=== PATIENT | female | born 1960 | race Caucasian/White ===

== ENCOUNTER 2017-02-10 17:44 | Emergency (ER) | payer BC ==
[2017-02-10] MEDS ORDERED: ONDANSETRON 4 MG/2 ML VIAL IVP STA (18:33)
[2017-02-10] MEDS ORDERED: SODIUM CHLORIDE 0.9% 1,000 ML IV STA (18:33)
[2017-02-10] MEDS ORDERED: ORPHENADRINE 30 MG/ML 2 ML VIAL IVP STA (18:35)
--- NOTE | 2017-02-10 18:35 | ED ---
Headache HPI - General Chief Complaint: Headache Stated Complaint: Headache, dry throat Time Seen by Provider: 02/10/17 18:22 Source: RN notes reviewed Mode of arrival: ambulatory Limitations: no limitations - History of Present Illness Initial Comments: This is a 56-year-old female presenting to emergency Department with chief complaint of a headache and bodyaches and a dry cough and throat. Patient reports that she has history of kidney disease and states that she needs to drink a lot of water. She reports that yesterday she really should not drink any water and thinks that offer symptoms are not related to this. Patient states that she has also been seen by her primary care doctor on Wednesday and was placed on amoxicillin for upper respiratory infection. Patient reports she has not started it yet but his pulses started today. Patient states that she has had a somewhat productive cough. Couple episodes of vomiting. She reports that her headache is a 10 out of 10. It is been going on for the past 12 hours. She reports that she's had a history of migraines and seems somewhat different. Patient states that she's been very fatigued over the past few weeks and has not had much sleep. She reports that she has also had use her 's inhaler due to her amount of coughing. Patient denies any specific fever or chills, abdominal pain, changes in bowel movements or dysuria. She denies any chest pain or shortness of breath. Patient states that her headache is caused her to have somewhat blurred vision. She reports that this is common for she has had a history of eye surgeries. - Related Data Home Medications Medication Instructions Recorded Confirmed Albuterol Sulfate [Proair Hfa] 2 puff INHALATION RT-Q6H PRN 02/10/17 02/10/17 Cetirizine HCl [Zyrtec] 10 mg PO DAILY 02/10/17 02/10/17 Clobetasol Propionate [Temovate] 1 applic TOPICAL DAILY PRN 02/10/17 02/10/17 Ergocalciferol [Vitamin D2] 50,000 unit PO WE 02/10/17 02/10/17 Estrogens, Conjugated Cream 1 applicator VAGINAL Q72H 02/10/17 02/10/17 [Premarin Cream] Fluticasone Nasal [place] [Flonase 2 sprays EA NOSTRIL DAILY PRN 02/10/17 02/10/17 Nasal [place]] Levothyroxine Sodium [Synthroid] 62.5 mcg PO KAUR 02/10/17 02/10/17 Levothyroxine Sodium [Synthroid] 125 mcg PO MOTUWETHFRSA 02/10/17 02/10/17 Multivit-Min/FA/Lycopen/Lutein 1 tab PO DAILY 02/10/17 02/10/17 [Centrum Silver Tablet] Oxymetazoline 0.05% Nasl [place] 2 spray EA NOSTRIL DAILY PRN 02/10/17 02/10/17 [Afrin 0.05% Nasal [place]] Phentermine HCl [Adipex-P] 37.5 mg PO DAILY 02/10/17 02/10/17 Previous Rx's Medication Instructions Recorded Albuterol Inhaler [Ventolin Hfa 1 - 2 puff INHALATION Q6HR PRN #1 02/10/17 Inhaler] inhaler Ondansetron Odt [Zofran Odt] 4 mg PO Q8HR PRN #12 tab 02/10/17 Allergies Allergy/AdvReac Type Severity Reaction Status Date / Time azithromycin Allergy Anaphylaxis Verified 02/10/17 18:43 Sulfa (Sulfonamide Allergy Anaphylaxis Verified 02/10/17 18:43 Antibiotics) amoxicillin AdvReac Vomiting Verified 02/10/17 18:43 cephalexin AdvReac Vomiting Verified 02/10/17 18:43 ciprofloxacin [From Cipro] AdvReac Vomiting Verified 02/10/17 18:43 Review of Systems ROS Statement: Those systems with pertinent positive or pertinent negative responses have been documented in the HPI. ROS Other: All systems not noted in ROS Statement are negative. Past Medical History Past Medical History: Asthma Additional Past Medical History / Comment(s): kidney disease History of Any Multi-Drug Resistant Organisms: None Reported Past Surgical History: Section, Cholecystectomy, Hysterectomy, Orthopedic Surgery Past Psychological History: No Psychological Hx Reported Smoking Status: Former smoker Past Alcohol Use History: Occasional Past Drug Use History: None Reported General Exam - General Exam Comments Initial Comments: This is a 56-year-old female. Patient does not appear to be in any significant distress. She does appear to have somewhat similar to migraine. She is keeping her eyes closed and her head covered. Limitations: no limitations General appearance: alert, in no apparent distress Head exam: Present: atraumatic, normocephalic, normal inspection Eye exam: Present: normal appearance, PERRL, EOMI. Absent: scleral icterus, conjunctival injection, periorbital swelling ENT exam: Present: normal exam, mucous membranes moist Neck exam: Present: normal inspection. Absent: tenderness, meningismus, lymphadenopathy Respiratory exam: Present: normal lung sounds bilaterally. Absent: respiratory distress, wheezes, rales, rhonchi, stridor Cardiovascular Exam: Present: regular rate, normal rhythm, normal heart sounds. Absent: systolic murmur, diastolic murmur, rubs, gallop, clicks GI/Abdominal exam: Present: soft, normal bowel sounds. Absent: distended, tenderness, guarding, rebound, rigid Extremities exam: Present: normal inspection, full ROM, normal capillary refill. Absent: tenderness, pedal edema, joint swelling, calf tenderness Back exam: Present: normal inspection, full ROM Neurological exam: Present: alert, oriented X3, CN II-XII intact Expanded Patient oriented to: Present: person, place, time Speech: Present: fluid speech Cranial nerves: EOM's Intact: Normal, Gag Reflex: Normal, Tongue Deviation: Normal Cerebellar function: Finger to Nose: Normal Upper motor neuron: Pronator Drift: Normal Sensory exam: Upper Extremity Light Touch: Normal, Lower Extremity Light Touch: Normal Motor strength exam: RUE: 5, LUE: 5, RLE: 5, LLE: 5 Eye Response: (4) open spontaneously Motor Response: (6) obeys commands Verbal Response: (5) oriented [place] Total: 15 Psychiatric exam: Present: normal affect, normal mood Skin exam: Present: warm, dry, intact, normal color. Absent: rash Course Vital Signs 02/10/17 02/10/17 18:16 20:00 Temperature 98.2 F Pulse Rate 86 87 Respiratory 20 16 Rate Blood Pressure 127/58 123/68 O2 Sat by Pulse 99 100 Oximetry - Reevaluation(s) Reevaluation #1: 02/10/17 20:38 Patient was evaluated for reports that her headache is still there. Patient will be given IV Toradol. All lab work was reviewed this time and discussed with patient. Negative for any acute process. CT brain was negative. Medical Decision Making - Medical Decision Making his is a 56-year-old female presenting to emergency Department with chief complaint of a headache and bodyaches and a dry cough and throat. Patient reports that she has history of kidney disease and states that she needs to drink a lot of water. She reports that yesterday she really should not drink any water and thinks that offer symptoms are not related to this. Patient states that she has also been seen by her primary care doctor on Wednesday and was placed on amoxicillin for upper respiratory infection. Patient reports she has not started it yet but his pulses started today. Patient states that she has had a somewhat productive cough. Couple episodes of vomiting. She reports that her headache is a 10 out of 10. It is been going on for the past 12 hours. She reports that she's had a history of migraines and seems somewhat different. Patient states that she's been very fatigued over the past few weeks and has not had much sleep. She reports that she has also had use her 's inhaler due to her amount of coughing. Patient given IV fluids, Toradol, Zofran and Norflex. Patient reports that her headache is now a [address] brain and chest x-ray were completed. Both of them are negative for any acute abnormalities. Patient reports that she's feeling much better after the IV fluids and medication. Lab work were reviewed. She did have a mild leukocytosis of 11.0. This could be related to the inflammatory that she's vomited today or her upper respiratory infection. I discussed the patient that she needs to take her previously prescribed amount on from her primary care provider starting today. Patient will be discharged with Zofran starter pack a prescription for Zofran as well as an albuterol inhaler for her coughing. Patient agrees to treatment plan following up with her primary care provider. Return parameters were discussed. - Lab Data Result diagrams: 02/10/17 18:50 02/10/17 18:50 Lab Results 02/10/17 02/10/17 Range/Units 18:50 18:50 WBC 11.3 H (3.8-10.6) k/uL RBC 4.51 (3.80-5.40) m/uL Hgb 14.5 (11.4-16.0) gm/dL Hct 41.7 (34.0-46.0) % MCV 92.6 (80.0-100.0) fL MCH 32.1 (25.0-35.0) pg MCHC 34.6 (31.0-37.0) g/dL RDW 12.9 (11.5-15.5) % Plt Count 314 (150-450) k/uL Neutrophils % 87 % Lymphocytes % 9 % Monocytes % 2 % Eosinophils % 1 % Basophils % 0 % Neutrophils # 9.8 H (1.3-7.7) k/uL Lymphocytes # 1.1 (1.0-4.8) k/uL Monocytes # 0.2 (0-1.0) k/uL Eosinophils # 0.1 (0-0.7) k/uL Basophils # 0.1 (0-0.2) k/uL Sodium 133 L (137-145) mmol/L Potassium 3.9 (3.5-5.1) mmol/L Chloride 99 (98-107) mmol/L Carbon Dioxide 25 (22-30) mmol/L Anion Gap 9 mmol/L BUN 16 (7-17) mg/dL Creatinine 0.69 (0.52-1.04) mg/dL Est GFR (MDRD) Af Amer >60 (>60 ml/min/1.73 sqM) Est GFR (MDRD) Non-Af >60 (>60 ml/min/1.73 sqM) Glucose 104 H (74-99) mg/dL Calcium 9.1 (8.4-10.2) mg/dL Total Bilirubin 0.7 (0.2-1.3) mg/dL AST 21 (14-36) U/L ALT 28 (9-52) U/L Alkaline Phosphatase 78 (38-126) U/L Total Protein 7.0 (6.3-8.2) g/dL Albumin 4.1 (3.5-5.0) g/dL - Radiology Data Radiology results: report reviewed Negative unenhanced head CT. Chest x-ray is negative for any acute process. Disposition Clinical Impression: Headache, Upper respiratory infection Disposition: HOME SELF-CARE Condition: Good Instructions: Acute Headache (ED) Additional Instructions: Advised to rest, increase fluids. Take previous a prescribed prescription including the antibiotic. Patient advised she can take the nausea medication and use her inhaler for the coughing. Return to the emergency department if any alarming signs or symptoms occur. Follow-up with primary care provider within the next 1-2 days. Prescriptions: Albuterol Inhaler [Ventolin Hfa Inhaler] 1 - 2 puff INHALATION Q6HR PRN #1 inhaler PRN Reason: Shortness Of Breath Ondansetron Odt [Zofran Odt] 4 mg PO Q8HR PRN #12 tab PRN Reason: Nausea Referrals: Zayra Urbina MD [Primary Care Provider] - 1-2 days Time of Disposition: 21:17
[2017-02-10 19:09] LABS: Basophils # (A) 0.1 k/uL (0-0.2); Basophils % (A) 0 %; CH 31.3; CHCM 33.9; Eosinophils # (A) 0.1 k/uL (0-0.7); Eosinophils % (A) 1 %; HCT 41.7 % (34.0-46.0); HDW 2.36; HGB 14.5 gm/dL (11.4-16.0); Luc # (Auto) 0.06; Luc % (Auto) 1; Lymphocytes # (A) 1.1 k/uL (1.0-4.8); Lymphocytes % (A) 9 %; MCH 32.1 pg (25.0-35.0); MCHC 34.6 g/dL (31.0-37.0); MCV 92.6 fL (80.0-100.0); Mean Platelet Volume 6.8; Monocytes # (A) 0.2 k/uL (0-1.0); Monocytes % (A) 2 %; Neutrophils # (A) 9.8 k/uL (1.3-7.7); Neutrophils % (A) 87 %; RBC 4.51 m/uL (3.80-5.40); RDW 12.9 % (11.5-15.5); WBC 11.3 k/uL (3.8-10.6); WBC (Perox) 10.64
[2017-02-10 19:12] LABS: ALT 28 U/L (9-52); AST 21 U/L (14-36); Alkaline Phosphatase 78 U/L (38-126); Anion Gap 9 mmol/L; Blood Urea Nitrogen 16 mg/dL (7-17); Calcium 9.1 mg/dL (8.4-10.2); Carbon Dioxide 25 mmol/L (22-30); Chloride 99 mmol/L (98-107); Glucose 104 mg/dL (74-99); Non-African American GFR(MDRD) >60 (>60 ml/min/1.73 sqM); Potassium 3.9 mmol/L (3.5-5.1); Sodium 133 mmol/L (137-145); Total Bilirubin 0.7 mg/dL (0.2-1.3)
--- NOTE | 2017-02-10 19:18 | XR ---
EXAMINATION TYPE: XR chest 2V DATE OF EXAM: 02/10/2017 7:08 PM COMPARISON: NONE HISTORY: Dehydration. Chest pain TECHNIQUE: Frontal and lateral views of the chest are obtained. FINDINGS: Heart and mediastinum are normal. Lungs are clear of consolidation. There are no hilar mas ses. There is no pleural effusion. Bony thorax is intact. IMPRESSION: No active cardiopulmonary disease.
--- NOTE | 2017-02-10 19:53 | CT ---
EXAMINATION TYPE: CT brain wo con DATE OF EXAM: 02/10/2017 7:36 PM COMPARISON: NONE HISTORY: BAIRD and dizziness. CT DLP: 1046 mGycm Automated exposure control for dose reduction was used. FINDINGS: The ventricles and sulci appear normal. There is no mass effect nor midline shift. There is no sign o f intracranial hemorrhage. The calvarium appears intact. IMPRESSION: Negative unenhanced head CT scan.
[2017-02-10 20:29] VITALS: RESP 16
[2017-02-10] MEDS ORDERED: KETOROLAC 30 MG/ML 1 ML VIAL IVP STA (20:37)
[2017-02-10] MEDS ORDERED: ONDANSETRON 4 MG ODT STARTER PACK 2 TAB BTL PO STA (21:22)
[2017-02-10 21:45] VITALS: BP 116/62; PULSE 83; TEMP 98.4
== END 2017-02-10 21:45 | disposition home or self-care (01) ==
LOC: EC 17:44
DX: J06.9 Acute upper respiratory infection, unspecified (principal); R51 Headache; D72.829 Elevated white blood cell count, unspecified; R05 Cough; R11.10 Vomiting, unspecified; Z87.891 Personal history of nicotine dependence; Z79.899 Other long term (current) drug therapy; Z88.1 Allergy status to other antibiotic agents; Z88.0 Allergy status to penicillin; Z88.2 Allergy status to sulfonamides; Z86.69 Personal history of other diseases of the nervous system and sense organs; Z87.448 Personal history of other diseases of urinary system
CPT/HCPCS: 36415; 80053; 85025; 71020; 70450; 99284; 96374; 96375 ×2; 96361; J2360; J2405; J1885; S0119